=== PATIENT | female | born 1945 | race Caucasian/White ===

== ENCOUNTER → 2016-10-18 | Outpatient (CLI) | payer BC ==
[~2016-10-18] MED LIST: BACL10TA PO; BECL0.3A INH; BIOTCAP2 PO; CHOL1TAB46 PO; COEN100C7 PO; CYAN100028 SL; FLUT0.15; FURO-85 PO; GABA-112 PO; HYDR200T5 PO; LSN/10125 PO; MULT-506 PO; QVRINH80 INH; SYMIN160 INH; TRAMTAB5 PO
[2016-10-18 17:09] LABS: ALT/SGPT 30 U/L (12-78); BLOOD UREA NITROGEN 14 mg/dl (7-18); BUN/CREATININE RATIO 17.8 (10-20); CALCIUM 9.4 mg/dl (8.5-10.1); CARBON DIOXIDE 33 mmol/L (21-32); CHLORIDE 104 mmol/L (98-107); GLUCOSE 95 mg/dl (70-99); POTASSIUM 4.3 mmol/L (3.5-5.1); SODIUM 143 mmol/L (136-145)
[2016-10-18 17:14] LABS: CHOLESTEROL 198 mg/dl (0-200); CHOLESTEROL/HDL RATIO 2.6; HDL CHOLESTEROL 75 mg/dl; LDL CHOLESTEROL CALCULATED 109 mg/dl; TRIGLYCERIDES 72 mg/dl (0-150); VERY LOW DENSITY LIPOPROT CALC 14 mg/dl
[2016-10-19 06:13] LABS: ESTIMATED AVERAGE GLUCOSE 137 mg/dl; HA1C FLAG Normal (Normal)
== END | disposition home or self-care (01) ==
LOC: C.LABBC 13:17
PROVIDERS: ATTEND Family Medicine
DX: R73.01 Impaired fasting glucose (principal); E78.5 Hyperlipidemia, unspecified; I25.10 Atherosclerotic heart disease of native coronary artery without angina pectoris

== ENCOUNTER → 2016-11-05 | Outpatient (CLI) | payer BC, OTHER ==
[2016-11-05 13:28] LABS: BASO % 1.4 %; BASO ABS # 0.07 K/uL (0-0.2); COMPLETE YES; EOS % 2.5 %; HEMATOCRIT 38.2 % (37-47); IG% 0.4 %; LYMPH ABS # 1.08 K/uL (1.2-3.4); MEAN CELL VOLUME 84.3 fL (80-100); MEAN CORPUSCULAR HGB CONC 33.2 g/dl (32-36); MEAN PLATELET VOLUME 10.9 fL (7.4-10.4); MONO % 8.9 %; NEUT % 65.8 %; PLATELET COUNT 252 K/uL (130-400); RED BLOOD COUNT 4.53 M/uL (4.2-5.4); WHITE BLOOD COUNT 5.15 K/uL (4.8-10.8)
== END | disposition home or self-care (01) ==
LOC: C.LABBC 10:29
PROVIDERS: ATTEND Family Medicine
DX: R53.1 Weakness (principal)

== ENCOUNTER 2016-11-06 16:22 | Emergency (ER) | payer BC, OTHER ==
[~2016-11-06] VITALS: Ht 170.2 cm; Wt 95.0 kg
[~2016-11-06 16:22] MED LIST changes: -FLUT0.15; -FURO-85 PO; -GABA-112 PO; -QVRINH80 INH
[2016-11-06 16:25] VITALS: TEMP 36.7; Ht 170.2 cm; Wt 95.0 kg
[2016-11-06] MEDS ORDERED: ASPIRIN 81 MG CHEW PO STA (16:43)
--- NOTE | 2016-11-06 16:53 | EMERGENCY ROOM VISIT NOTE ---
History Report prepared by Sara: Kirk Juarez Under the Supervision of: Dr. Melissa Owen M.D. First contact with patient: 16:31 Chief Complaint: PALPITATIONS Stated Complaint: WEAK, PALPITATIONS-PHYSICIAN REFERRED History of Present Illness The patient is a 71 year old female who presents to the Emergency Room with complaints of persistent palpitations beginning one day prior to arrival. She associates weakness, intermittent diaphoresis, intermittent shortness of breath , intermittent dizziness, and bilateral lower extremity edema with today's symptoms. The patient notes she has been experiencing weakness for the past two months, and noticed the weakness on her trip to [place]. She notes she just returned three days ago on a bus trip from [place]. She states she had experienced intermittent palpitations for the past two weeks, but they have become constant over the past two days. The patient notes she has asthma, arthritis, and fibromyalgia. She denies taking aspirin today. The patient denies a history of a blood clot. She notes her doctor referred the patient to the ED today. The patient denies chest pain. Source of History: patient Onset: one day [employer] Position: other (global) Quality: other (palpitations) Timing: other (persistent) Associated Symptoms: + SOB (intermittent), + diaphoresis (intermittent), + weakness, No chest pain Note: Associated symptoms: intermittent dizziness, bilateral lower extremity edema. Review of Systems See HPI for pertinent positives & negatives. A total of 10 systems reviewed and were otherwise negative. Past Medical & Surgical Medical Problems: (1) Asthma (2) Fibromyalgia (3) Hypertension (4) Osteoarthritis (5) Rheumatoid arthritis Surgical Problems: (1) S/P hysterectomy Family History Patient reports no known family medical history. Social History Smoking Status: Never Smoker Marital Status: Occupation Status: retired Current/Historical Medications Scheduled Baclofen (Lioresal), 10 MG PO TID Beclomethasone Dip (Qvar), 2 PUFFS INH BID Biotin (Biotin 5000), 1 CAP PO QAM Budesonide/Formoterol Fumarate (Symbicort 160/4.5 Inhaler ), 2 PUFFS INH BID Cholecalciferol (Vitamin D3), 1 TAB PO QAM Coenzyme Q10 (Ubidecarenone) (Coq10), 1 CAP PO QAM Fluticasone Propionate (Nasal) (Flonase Allergy Relief), 2 SPRAYS NA DAILY Furosemide (Lasix), 1 TAB PO DAILY Hctz/Lisinopril (Lisinopril/Hctz 10/12.5 Mg), 1 TAB PO HS Hydroxychloroquine Sulfate (Plaquenil), 200 MG PO BID Multivitamin (Multivitamin), 1 TAB PO QAM Scheduled PRN Gabapentin (Neurontin), 100 MG PO HS PRN for Pain Tramadol/Acetaminophen (Ultracet), 1 TAB PO BID PRN for Pain Allergies Coded Allergies: Adalimumab (Verified Allergy, Intermediate, HIVES, 11/06/16) Benzyl Alcohol (Verified Allergy, Intermediate, RASH/WEAKNESS, 11/06/16) Etanercept (Verified Allergy, Intermediate, RASH/WEAKNESS, 11/06/16) Fish Allergy (Verified Allergy, Intermediate, "SEAFOOD ALLERGY" RXN = "SWELLING", 11/06/16) Shellfish (Verified Allergy, Intermediate, "SEAFOOD ALLERGY" RXN = "SWELLING", 11/06/16) Shellfish Allergy (Verified Allergy, Intermediate, "SEAFOOD ALLERGY" RXN = "SWELLING", 11/06/16) Tromethamine (Verified Allergy, Intermediate, RASH/WEAKNESS, 11/06/16) White Fish (Verified Allergy, Intermediate, "SEAFOOD ALLERGY" RXN = "SWELLING", 11/06/16) Sulfa Drugs (Verified Adverse Reaction, Severe, HEADACHE, 11/06/16) Physical Exam Vital Signs Date Time Temp Pulse Resp B/P Pulse Ox O2 Delivery O2 Flow Rate FiO2 11/06/16 21:24 70 19 131/71 98 11/06/16 19:10 63 11/06/16 19:04 64 18 131/71 96 11/06/16 16:57 92 20 126/76 96 Room Air 11/06/16 16:30 97 Room Air 11/06/16 16:25 36.7 85 18 134/80 97 Room Air Physical Exam Vital signs reviewed. General: Well-appearing female, in no significant distress. HEENT: No scleral icterus, PERRLA, neck supple. Atraumatic. Cardiovascular: Occasional tachycardia and regular rhythm, no extra sounds. Pulmonary: Clear to auscultation bilaterally, normal work of breathing. Abdomen: Soft, nontender, nondistended, positive bowel sounds. Musculoskeletal: 2-3+ pitting edema to bilateral lower extremities. Atraumatic. Neurologic: Patient awake alert and oriented x 3, full strength in all 4 extremities. Cranial nerves 2 through 12 grossly intact. Skin: Warm, dry, no rash Medical Decision & Procedures ER Provider Diagnostic Interpretation: Radiology results as stated below per my review and radiologist interpretation: CHEST ONE VIEW PORTABLE HISTORY: Short of breath. Palpitations. COMPARISON: Chest 09/08/2015. FINDINGS: The heart remains mildly enlarged. Small linear scarlike densities at the left lung base persist. Otherwise, the lungs are clear. No pleural effusions. No pneumothorax. IMPRESSION: Stable mild cardiomegaly. Otherwise, no acute process within the chest. Electronically signed by: Hernesto Sandoval M.D. 11/06/2016 7:06 PM BILATERAL LOWER EXTREMITY VENOUS DOPPLER HISTORY: Bilateral leg edema. COMPARISON STUDY: None. FINDINGS: There is normal compressibility, flow, and augmentation within the bilateral lower extremity deep venous systems. IMPRESSION: No DVT within the right or left lower extremity. Electronically signed by: Hernesto Sandoval M.D. 11/06/2016 5:37 PM CHEST CTA for PULMONARY ARTERIES CT DOSE: 476.85 mGy.cm HISTORY: Palpitations. Weakness. TECHNIQUE: Multiaxial CT images of the chest were performed following the intravenous administration of contrast to evaluate the pulmonary arteries. Maximal intensity projection images were also obtained. COMPARISON STUDY: Chest 11/06/2016. FINDINGS: Normal caliber thoracic aorta with no evidence for dissection. Trace pleural effusions. The heart is mildly enlarged. No filling defects within the pulmonary arteries to suggest pulmonary embolus. No pneumothorax. The central airways are patent. There are few scattered tiny subpleural nodules with the largest in the right upper lobe on image 92 measuring 3 mm. Therefore, these are of doubtful clinical significance. Bibasilar linear densities favor subsegmental atelectasis. Mild hepatic steatosis. The spleen and adrenal glands are unremarkable. No mediastinal or hilar lymphadenopathy. IMPRESSION: 1. No evidence for pulmonary embolus. 2. Mild cardiomegaly, unchanged. 3. Trace bilateral pleural effusions. Electronically signed by: Hernesto Sandoval M.D. 11/06/2016 8:28 PM Laboratory Results 11/06/16 16:42 Red Blood Count 4.72, Mean Corpuscular Volume 83.9, Mean Corpuscular Hemoglobin 28.0, Mean Corpuscular Hemoglobin Concent 33.3, Mean Platelet Volume 10.8, Neutrophils (%) (Auto) 72.3, Lymphocytes (%) (Auto) 16.8, Monocytes (%) (Auto) 8.4, Eosinophils (%) (Auto) 1.5, Basophils (%) (Auto) 0.8, Neutrophils # (Auto) 4.48, Lymphocytes # (Auto) 1.04, Monocytes # (Auto) 0.52, Eosinophils # (Auto) 0.09, Basophils # (Auto) 0.05 11/06/16 16:42 Test 11/06/16 16:42 11/06/16 16:54 11/06/16 17:00 White Blood Count 6.19 K/uL (4.8-10.8) Red Blood Count 4.72 M/uL (4.2-5.4) Hemoglobin 13.2 g/dL (12.0-16.0) Hematocrit 39.6 % (37-47) Mean Corpuscular Volume 83.9 fL (80-100) Mean Corpuscular Hemoglobin 28.0 pg (25-34) Mean Corpuscular Hemoglobin Concent 33.3 g/dl (32-36) Platelet Count 266 K/uL (130-400) Mean Platelet Volume 10.8 fL (7.4-10.4) Neutrophils (%) (Auto) 72.3 % Lymphocytes (%) (Auto) 16.8 % Monocytes (%) (Auto) 8.4 % Eosinophils (%) (Auto) 1.5 % Basophils (%) (Auto) 0.8 % Neutrophils # (Auto) 4.48 K/uL (1.4-6.5) Lymphocytes # (Auto) 1.04 K/uL (1.2-3.4) Monocytes # (Auto) 0.52 K/uL (0.11-0.59) Eosinophils # (Auto) 0.09 K/uL (0-0.5) Basophils # (Auto) 0.05 K/uL (0-0.2) RDW Standard Deviation 48.8 fL (36.4-46.3) RDW Coefficient of Variation 16.0 % (11.5-14.5) Immature Granulocyte % (Auto) 0.2 % Immature Granulocyte # (Auto) 0.01 K/uL (0.00-0.02) Prothrombin Time 10.5 SECONDS (9.0-12.0) Prothromb Time International Ratio 1.0 (0.9-1.1) Activated Partial Thromboplast Time 26.6 SECONDS (21.0-31.0) Partial Thromboplastin Ratio 1.0 D-Dimer 880 ug/L FEU (0-500) Anion Gap 7.0 mmol/L (3-11) Est Creatinine Clear Calc Drug Dose 77.2 ml/min Estimated GFR () 88.0 Estimated GFR (Non- 76.0 BUN/Creatinine Ratio 19.5 (10-20) Calcium Level 9.3 mg/dl (8.5-10.1) Magnesium Level 2.3 mg/dl (1.8-2.4) Total Bilirubin 0.4 mg/dl (0.2-1) Direct Bilirubin 0.1 mg/dl (0-0.2) Aspartate Amino Transf (AST/SGOT) 19 U/L (15-37) Alanine Aminotransferase (ALT/SGPT) 22 U/L (12-78) Alkaline Phosphatase 66 U/L (45-117) Total Creatine Kinase 77 U/L (26-192) Creatine Kinase MB 1.5 ng/ml (0.5-3.6) Creatine Kinase MB Ratio 1.9 (0-3.0) Total Protein 7.3 gm/dl (6.4-8.2) Albumin 3.7 gm/dl (3.4-5.0) Thyroid Stimulating Hormone (TSH) 1.800 uIu/ml (0.300-4.500) Bedside Troponin I 0.010 ng/ml (0-0.045) JP-Tbm-E-Type Natriuretic Peptide 213 pg/ml (0-900) Urine Color YELLOW Urine Appearance CLEAR (CLEAR) Urine pH 7.0 (4.5-7.5) Urine Specific [place] 1.004 (1.000-1.030) Urine Protein NEG (NEG) Urine Glucose (UA) NEG (NEG) Urine Ketones NEG (NEG) Urine Occult Blood NEG (NEG) Urine Nitrite NEG (NEG) Urine Bilirubin NEG (NEG) Urine Urobilinogen NEG (NEG) Urine Leukocyte Esterase TRACE (NEG) Urine WBC (Auto) 1-5 /hpf (0-5) Urine RBC (Auto) 0-4 /hpf (0-4) Urine Hyaline Casts (Auto) 0 /lpf (0-5) Urine Epithelial Cells (Auto) 5-10 /lpf (0-5) Urine Bacteria (Auto) NEG (NEG) Laboratory results per my review. Medications Administered Medications (Trade) Dose Ordered Sig/Yuly Route Start Time Stop Time Status Last Admin Dose Admin Aspirin (Aspirin Chew) 324 mg NOW STAT PO 11/06/16 16:43 11/06/16 16:47 DC 11/06/16 16:56 324 MG Methylprednisolone Sodium Succinate (Solu-Medrol IV) 125 mg NOW STAT IV 11/06/16 19:45 11/06/16 19:47 DC 11/06/16 19:57 125 MG Diphenhydramine HCl (Benadryl Inj) 50 mg NOW STAT IV 11/06/16 19:45 11/06/16 19:47 DC 11/06/16 19:57 50 MG Furosemide (Lasix Tab) 20 mg NOW STAT PO 11/06/16 20:36 11/06/16 20:37 DC 11/06/16 21:21 20 MG Diphenhydramine HCl (diphenhydrAMINE 25MG HOME PACK) 1 homepack UD ONCE PO 11/06/16 21:00 11/06/16 21:01 DC 11/06/16 21:21 1 HOMEPACK ECG Indication: palpitations Rate (beats per minute): 73 Rhythm: sinus rhythm Findings: 1st degree AV block, no acute ischemic change, no ectopy ED Course 1631: Past medical records reviewed. The patient was evaluated in room B5. A complete history and physical examination was performed. 1642: Ordered Aspirin 324 mg PO. 1641: Reevaluated and updated the patient at this time. 1944: Ordered Benadryl Inj 50 mg IV, Solu-Medrol IV 125 mg IV. 2035: Ordered Lasix Tab 20 mg PO. 2043: Upon reevaluation, the patient appeared to have improvement of her symptoms. I discussed findings with her. She verbalized agreement of the treatment plan. The patient was discharged home. Medical Decision Differential diagnosis: Etiologies such as infections, reactive airway disease, pneumonia, pneumothorax , COPD, CHF, cardiac ischemia, pulmonary embolism, musculoskeletal, gastrointestinal, as well as others were entertained. This patient was evaluated and appeared to be in no significant distress. Physical examination is consistent with a bilateral lower extremity edema. Chest x-ray was performed and is negative. Ultrasound of the bilateral lower extremities are negative. CT scan of the chest was performed after the d-dimer was positive. Patient did require IV Benadryl and Solu-Medrol prior to this study. This study reveals small bilateral pleural effusions, no evidence of PE. Cardiac enzymes are negative. EKG reveals a first-degree AV block. There is no ectopy or acute ischemia. Patient was given 20 mg of Lasix orally. She was informed of the findings given a prescription for 20 mg of Lasix daily. She 'll follow-up with her physician this week for reevaluation and return to the ER for worsening symptoms or any medical concerns. Impression Primary Impression: Dependent edema Additional Impression: Pleural effusion, bilateral Scribe Attestation The scribe's documentation has been prepared under my direction and personally reviewed by me in its entirety. I confirm that the note above accurately reflects all work, treatment, procedures, and medical decision making performed by me. Departure Information Prescriptions Furosemide (LASIX) 20 Mg Tab 1 TAB PO DAILY for 30 Days, #30 TAB 5 Refills Prov: Melissa Owen M.D. 11/06/16 Referrals Nicci Hernandez MD (PCP) Patient Instructions My [facility] Problem Qualifiers
[2016-11-06 17:00] LABS: BASO % 0.8 %; BASO ABS # 0.05 K/uL (0-0.2); COMPLETE YES; EOS % 1.5 %; HEMATOCRIT 39.6 % (37-47); IG% 0.2 %; LYMPH % 16.8 %; LYMPH ABS # 1.04 K/uL (1.2-3.4); MEAN CELL VOLUME 83.9 fL (80-100); MEAN CORPUSCULAR HGB CONC 33.3 g/dl (32-36); MEAN PLATELET VOLUME 10.8 fL (7.4-10.4); MONO % 8.4 %; NEUT % 72.3 %; PLATELET COUNT 266 K/uL (130-400); RED BLOOD COUNT 4.72 M/uL (4.2-5.4); WHITE BLOOD COUNT 6.19 K/uL (4.8-10.8)
[2016-11-06 17:11] LABS: PROTHROMBIN TIME (PATIENT) 10.5 SECONDS (9.0-12.0)
[2016-11-06 17:14] LABS: POINT OF CARE TROPONIN I 0.01 ng/ml (0-0.045)
[2016-11-06 17:16] LABS: BUN/CREATININE RATIO 19.5 (10-20); CALCIUM 9.3 mg/dl (8.5-10.1); CREATININE 0.78 mg/dl (0.60-1.20); MAGNESIUM 2.3 mg/dl (1.8-2.4); POTASSIUM 3.5 mmol/L (3.5-5.1)
[2016-11-06 17:23] LABS: URINE APPEARANCE CLEAR (CLEAR); URINE BILIRUBIN NEG (NEG); URINE COLOR YELLOW; URINE NITRITE NEG (NEG); URINE SPECIFIC GRAVITY 1.004 (1.000-1.030); UROBILINOGEN NEG (NEG); ZZUR CULT IF INDIC CLEAN CATCH NO
[2016-11-06 17:27] LABS: CKMB/CK RATIO 1.9 (0-3.0); THYROID STIMULATING HORMONE 1.8 uIu/ml (0.300-4.500)
[2016-11-06 17:31] LABS: MANUAL MICROSCOPIC REQUIRED? NO; REVIEW REQ? NO
--- NOTE | 2016-11-06 17:39 | DIAGNOSTIC IMAGING REPORT ---
BILATERAL LOWER EXTREMITY VENOUS DOPPLER HISTORY: Bilateral leg edema. COMPARISON STUDY: None. FINDINGS: There is normal compressibility, flow, and augmentation within the bilateral lower extremity deep venous systems. IMPRESSION: No DVT within the right or left lower extremity. Electronically signed by: Hernesto Sandoval M.D. 11/06/2016 5:37 PM Dictated Date/Time: 11/06/2016 5:34 PM
[2016-11-06] MEDS ORDERED: FLUT0.15 (18:02)
[2016-11-06] MEDS ORDERED: QVRINH80 INH (18:03)
[2016-11-06] MEDS ORDERED: GABA-112 PO (18:04)
--- NOTE | 2016-11-06 19:07 | DIAGNOSTIC IMAGING REPORT ---
CHEST ONE VIEW PORTABLE HISTORY: Short of breath. Palpitations. COMPARISON: Chest 09/08/2015. FINDINGS: The heart remains mildly enlarged. Small linear scarlike densities at the left lung base persist. Otherwise, the lungs are clear. No pleural effusions. No pneumothorax. IMPRESSION: Stable mild cardiomegaly. Otherwise, no acute process within the chest. Electronically signed by: Hernesto Sandoval M.D. 11/06/2016 7:06 PM Dictated Date/Time: 11/06/2016 7:03 PM
[2016-11-06] MEDS ORDERED: METHYLPREDNISOLONE 125 MG VIAL IV STA (19:45)
[2016-11-06] MEDS ORDERED: DiphenhydrAMINE HCL 50 MG/ML VIAL IV STA (19:45)
[2016-11-06] MEDS ORDERED: OPTIRAY 320 IV PRN (20:00)
--- NOTE | 2016-11-06 20:30 | DIAGNOSTIC IMAGING REPORT ---
CHEST CTA for PULMONARY ARTERIES CT DOSE: 476.85 mGy.cm HISTORY: Palpitations. Weakness. TECHNIQUE: Multiaxial CT images of the chest were performed following the intravenous administration of contrast to evaluate the pulmonary arteries. Maximal intensity projection images were also obtained. COMPARISON STUDY: Chest 11/06/2016. FINDINGS: Normal caliber thoracic aorta with no evidence for dissection. Trace pleural effusions. The heart is mildly enlarged. No filling defects within the pulmonary arteries to suggest pulmonary embolus. No pneumothorax. The central airways are patent. There are few scattered tiny subpleural nodules with the largest in the right upper lobe on image 92 measuring 3 mm. Therefore, these are of doubtful clinical significance. Bibasilar linear densities favor subsegmental atelectasis. Mild hepatic steatosis. The spleen and adrenal glands are unremarkable. No mediastinal or hilar lymphadenopathy. IMPRESSION: 1. No evidence for pulmonary embolus. 2. Mild cardiomegaly, unchanged. 3. Trace bilateral pleural effusions. Electronically signed by: Hernesto Sandoval M.D. 11/06/2016 8:28 PM Dictated Date/Time: 11/06/2016 8:20 PM
[2016-11-06] MEDS ORDERED: FUROSEMIDE 40 MG TAB PO STA (20:36)
[2016-11-06] MEDS ORDERED: BENADRYL HOME PACK 25 MG TAB PO ONE (21:00)
[2016-11-06] MEDS ORDERED: FURO-85 PO (21:00)
[2016-11-06 21:24] VITALS: BP 131/71; PULSE 70; O2SAT 98
== END 2016-11-06 21:24 | disposition home or self-care (01) ==
LOC: C.EDB 16:25
DX: R60.0 Localized edema (principal); J90 Pleural effusion, not elsewhere classified; I44.0 Atrioventricular block, first degree; R53.1 Weakness; R06.02 Shortness of breath; R61 Generalized hyperhidrosis; J45.909 Unspecified asthma, uncomplicated; M79.7 Fibromyalgia; I10 Essential (primary) hypertension; M19.90 Unspecified osteoarthritis, unspecified site; M06.9 Rheumatoid arthritis, unspecified; Z79.899 Other long term (current) drug therapy

== ENCOUNTER → 2017-03-04 | Outpatient (CLI) | payer BC, OTHER ==
[~2017-03-04] MED LIST changes: -BECL0.3A INH; -CYAN100028 SL; +FLUT0.15; +FURO-85 PO; +GABA-112 PO; +QVRINH80 INH
== END | disposition home or self-care (01) ==
LOC: C.RDSM 07:00
PROVIDERS: ATTEND Physical Medicine & Rehabilitation Sports Medicine
DX: Z96.652 Presence of left artificial knee joint (principal); M25.561 Pain in right knee

== ENCOUNTER → 2017-08-19 | Outpatient (CLI) | payer BC, OTHER ==
[2017-08-19 13:50] LABS: HEMOGLOBIN A1C 5.9 % (4.5-5.6)
[2017-08-19 14:18] LABS: ALBUMIN 3.7 gm/dl (3.4-5.0); ALT/SGPT 28 U/L (12-78); AST/SGOT 20 U/L (15-37); BLOOD UREA NITROGEN 14 mg/dl (7-18); CALCIUM 9.5 mg/dl (8.5-10.1); CARBON DIOXIDE 33 mmol/L (21-32); CREATININE 0.82 mg/dl (0.60-1.20); GLUCOSE 90 mg/dl (70-99); POTASSIUM 3.8 mmol/L (3.5-5.1); SODIUM 139 mmol/L (136-145)
[2017-08-19 14:19] LABS: ALKALINE PHOSPHATASE 72 U/L (45-117); CHOLESTEROL 189 mg/dl (0-200); LDL CHOLESTEROL CALCULATED 105 mg/dl; TOTAL PROTEIN 7.1 gm/dl (6.4-8.2)
== END | disposition home or self-care (01) ==
LOC: C.LABBC 10:30
PROVIDERS: ATTEND Family Medicine
DX: I10 Essential (primary) hypertension (principal); R73.01 Impaired fasting glucose; E78.5 Hyperlipidemia, unspecified; I25.10 Atherosclerotic heart disease of native coronary artery without angina pectoris